=== PATIENT | male | born 1995 | race Caucasian/White ===

== ENCOUNTER 2016-05-21 13:08 | Emergency (ER) | payer OTHER ==
[~2016-05-21] VITALS: Ht 180.3 cm; Wt 68.0 kg
[2016-05-21] MEDS ORDERED: NKM (13:19)
--- NOTE | 2016-05-21 14:08 | Emergency Room Report ---
History of Present Illness General Chief Complaint: General Complaint Source: Patient Present Illness HPI 20-year-old male presents to emergency Department complaining of intermittent episodes of His muscles twitching in the face and arms bilaterally. Patient states recent use of methamphetamine on Thursday and has had symptoms that in addition to high blood pressure. Patient also reports dark colored urine denies hematuria denies dysuria. Patient is worried that he may have had a stroke. Patient states his symptoms resolved spontaneously and then reappear when angry. Denies abdominal pain. Denies numbness tingling or loss of sensation or gross motor movements of the extremities, incontinence of bowel or bladder. Denies CP, Palpitations, LOC, AMS, dizziness, Changes in Vision, Sensation, paresthesias, or a sudden severe headache. Allergies: Coded Allergies: No Known Allergies (Unverified , 05/21/16) Patient History Past Medical History: see triage record Past Surgical History: none Pertinent Family History: none Immunizations: UTD Reviewed Nursing Documentation: PMH: Agreed, PSxH: Agreed Nursing Documentation-PMH Past Medical History: No History, Except For Review of Systems All Other Systems: negative except mentioned in HPI Physical Exam Vital Signs Date Time Temp Pulse Resp B/P Pulse Ox O2 Delivery O2 Flow Rate FiO2 05/21/16 13:13 97.2 70 16 117/69 97 Room Air Sp02 EP Interpretation: reviewed, normal General Appearance: no apparent distress, alert, GCS 15, non-toxic Head: normocephalic, atraumatic Eyes: bilateral eye PERRL, bilateral eye normal inspection ENT: hearing grossly normal, normal pharynx, no angioedema, normal voice Neck: full range of motion, supple/symm/no masses Respiratory: chest non-tender, lungs clear, normal breath sounds, speaking full sentences Cardiovascular #1: regular rate, rhythm, no edema Gastrointestinal: normal bowel sounds, non tender, soft, no guarding, no rebound Rectal: deferred Genitourinary: normal inspection, no CVA tenderness Musculoskeletal: back normal, gait/station normal, normal range of motion, non- tender, no calf tenderness Neurologic: alert, oriented x3, responsive, motor strength/tone normal, sensory intact, speech normal, other - negative tinnels sign Psychiatric: memory normal, mood/affect normal, no suicidal/homicidal ideation , anxious Skin: normal color, no rash, warm/dry, well hydrated Lymphatic: no adenopathy Medical Decision Making PA Attestation Dr. astorga is my supervising Physician whom patient management has been discussed with. Diagnostic Impression: Primary Impression: Methamphetamine use Additional Impression: Elevated CK ER Course 20-year-old male presents to emergency Department complaining of intermittent episodes of. His mean and twitching in the face and arms bilaterally. Patient states recent use of methamphetamine on Thursday and has had symptoms that in addition to high blood pressure. Patient also reports dark colored urine denies hematuria denies dysuria. Patient is worried that he may have had a stroke. Patient states his symptoms resolved spontaneously and then reappear when angry. Ddx considered but are not limited to electrolyte imbalance, rhabdo, methamphetamine side effects, dehydration, TIA Vital signs: are WNL, pt. is afebrile H&PE are most consistent with Methamphetamine use side effects will r/o electrolyte imbalance or rhabdomyolysis ORDERS: -BMP: no evidence of electrolyte imbalance, normal renal function - Total CK: mildly elevated at 208. ED INTERVENTIONS: None required at this time. - Pt given list of substance abuse and addiction resources. DISCHARGE: At this time pt. is stable for d/c to home. Will provide printed patient care instructions, and any necessary prescriptions. Care plan and follow up instructions have been discussed with the patient prior to discharge. Labs Test 05/21/16 13:47 Urine Color Pale yellow Urine Appearance Slightly cloudy Urine pH 8 (4.5-8.0) Urine Specific [place] 1.015 (1.005-1.035) Urine Protein Negative (NEGATIVE) Urine Glucose (UA) Negative (NEGATIVE) Urine Ketones Negative (NEGATIVE) Urine Occult Blood Negative (NEGATIVE) Urine Nitrite Negative (NEGATIVE) Urine Bilirubin Negative (NEGATIVE) Urine Urobilinogen Normal MG/DL (0.0-1.0) Urine Leukocyte Esterase 1+ (NEGATIVE) Urine RBC 0-2 /HPF (0 - 0) Urine WBC 2-4 /HPF (0 - 0) Urine Squamous Epithelial Cells Occasional /LPF Urine Amorphous Sediment Moderate /LPF (NONE) Urine Bacteria Few /HPF (NONE) Sodium Level 139 mEQ/L (135-145) Potassium Level 4.1 mEQ/L (3.4-4.9) Chloride Level 98 mEQ/L (98-107) Carbon Dioxide Level 27 mEQ/L (20-30) Anion Gap 14 (5-15) Blood Urea Nitrogen 21 mg/dL (7-23) Creatinine 1.0 mg/dL (0.7-1.2) Estimat Glomerular Filtration Rate > 60 mL/min (>60) Glucose Level 90 mg/dL (74-106) Calcium Level 9.9 mg/dL (8.6-10.2) Total Creatine Kinase 208 U/L (38-174) Last Vital Signs Date Time Temp Pulse Resp B/P Pulse Ox O2 Delivery O2 Flow Rate FiO2 05/21/16 13:13 97.2 70 16 117/69 97 Room Air Disposition: HOME, SELF-CARE Condition: Stable Referrals: [facility]ERR[facility] (PCP) Patient Instructions: Creatine Kinase Test, Substance Use Disorder Additional Instructions: Take any previously prescribed medications as directed. Follow up with PCP in 3-5 days Return sooner to ED if new symptoms occur, or current symptoms become worse. Recommend discontinuing the use of methamphetamine. * please review list of substance abuse resources - Please note that this Emergency Department Report was dictated using [employer]manager in home technology software, occasionally this can lead to erroneous entry secondary to interpretation by the dictation equipment. Liana Dockery May 21, 2016 14:08
[2016-05-21 14:14] LABS: APPEARANCE,URINE SLIGHTLY CLOUDY; KETONES,URINE NEGATIVE (NEGATIVE); LEUKOCYTE ESTERASE ,URINE 1+ (NEGATIVE); NITRITE,URINE NEGATIVE (NEGATIVE); PH,URINE 8 (4.5-8.0); PROTEIN,URINE NEGATIVE (NEGATIVE); UROBILINOGEN,URINE NORMAL MG/DL (0.0-1.0)
[2016-05-21 14:24] LABS: AMORPHOUS SEDIMENT,UR MODERATE /LPF; BACTERIA,URINE FEW /HPF; RBC,URINE 0-2 /HPF (0 - 0); SQUAMOUS EPITHELIAL CELL,UR OCCASIONAL /LPF (NONE/OCC)
[2016-05-21 14:28] LABS: ANION GAP 14 (5-15); CALCIUM 9.9 mg/dL (8.6-10.2); CARBON DIOXIDE 27 mEQ/L (20-30); CHLORIDE 98 mEQ/L (98-107); GLOMERULAR FILTRATION RATE > 60 mL/min (>60); HEMOLYSIS 12; POTASSIUM 4.1 mEQ/L (3.4-4.9); SODIUM 139 mEQ/L (135-145)
[2016-05-21 15:19] VITALS: BP 117/64
== END 2016-05-21 15:23 | disposition home or self-care (01) ==
LOC: EMR 13:30
DX: F15.90 Other stimulant use, unspecified, uncomplicated (principal); R79.89 Other specified abnormal findings of blood chemistry; R25.3 Fasciculation
CPT/HCPCS: 36415; 80048; 81003; 82550; 99282

== ENCOUNTER 2016-06-18 12:02 | Emergency (ER) | payer OTHER ==
[~2016-06-18] VITALS: Ht 180.3 cm; Wt 68.0 kg
[~2016-06-18 12:02] MED LIST: NKM
[2016-06-18 12:26] VITALS: BP 112/70
[2016-06-18] MEDS ORDERED: TdaP Vaccine 0.5ml Syr IM ONE (12:45)
[2016-06-18] MEDS ORDERED: Bacitracin Oint UD TOPIC ONE (12:45)
--- NOTE | 2016-06-18 12:53 | Emergency Room Report ---
History of Present Illness General Chief Complaint: General Complaint Source: Patient, Medical Record Present Illness HPI 20-year-old male presents emergency department complaining of pain, erythema and foreign body sensation to the base of the left second digit x3 days. Patient states that he sustained a laceration from broken car glass window and believes that there may be foreign body inside. Patient does not know when his last tetanus vaccination was. Patient denies bleeding at this time. Patient reports decreased sensation about the wound. Denies numbness tingling or loss of sensation or gross motor movements of the extremities, incontinence of bowel or bladder. Denies CP, Palpitations, LOC, AMS, dizziness, Changes in Vision, Sensation, paresthesias, or a sudden severe headache. Allergies: Coded Allergies: No Known Allergies (Unverified , 05/21/16) Patient History Past Medical History: see triage record Past Surgical History: none Pertinent Family History: none Reviewed Nursing Documentation: PMH: Agreed, PSxH: Agreed Nursing Documentation-PMH Past Medical History: No History, Except For Review of Systems All Other Systems: negative except mentioned in HPI Physical Exam Vital Signs Date Time Temp Pulse Resp B/P Pulse Ox O2 Delivery O2 Flow Rate FiO2 06/18/16 12:26 97.5 60 20 112/70 98 Room Air Sp02 EP Interpretation: reviewed, normal General Appearance: no apparent distress, alert, GCS 15, non-toxic Head: normocephalic, atraumatic Eyes: bilateral eye PERRL, bilateral eye normal inspection ENT: hearing grossly normal, normal pharynx, no angioedema, normal voice Neck: full range of motion, supple/symm/no masses Respiratory: lungs clear, normal breath sounds, speaking full sentences Cardiovascular #1: regular rate, rhythm, no edema Musculoskeletal: back normal, gait/station normal, normal range of motion, non- tender Neurologic: alert, oriented x3, responsive, motor strength/tone normal, sensory intact, speech normal Psychiatric: judgement/insight normal, memory normal, mood/affect normal, no suicidal/homicidal ideation Skin: normal color, no rash, warm/dry, well hydrated, laceration - healing laceration of the left hand between digits 2 and 3, healing by secondary intent , with notable soft tissue scarring, erythema, and mild crusting noted, ttp to soft tissue in that area. Lymphatic: no adenopathy Medical Decision Making PA Attestation Dr. Tyson is my supervising Physician whom patient management has been discussed with. Diagnostic Impression: Primary Impression: Foreign body of hand, left Qualified Codes: S60.552A - Superficial foreign body of left hand, initial encounter Additional Impression: Cellulitis Qualified Codes: L03.012 - Cellulitis of left finger ER Course 20-year-old male presents emergency department complaining of 4/10 in severity pain, erythema and foreign body sensation to the base of the left second digit x3 days. Patient states that he sustained a laceration from broken car glass window and believes that there may be foreign body inside. pain exacerbated with squeezing the skin about the laceration. Patient does not know when his last tetanus vaccination was. Patient denies bleeding at this time. Patient reports decreased sensation about the wound. Ddx considered but are not limited to laceration, tendon injury, cellulitis, amputation, FB Vital signs: are WNL, pt. is afebrile H&PE are most consistent with: palm laceration approx 1 cm in length - healing laceration of the left hand between digits 2 and 3, healing by secondary intent, with notable soft tissue scarring, erythema, and mild crusting noted, ttp to soft tissue in that area. suspicious for secondary infection- pt will be placed on abx. ORDERS: -- X-ray Left hand 3 views - negative for fx, Dislocation, evidence of soft tissue laceration, POSITIVE for fb near site of laceration- per preliminary read in ED by Dr. Tyson ED INTERVENTIONS: -Tetanus vaccine was administered as pt. vaccination status was unknown. -Bacitracin and sterile dressing is applied. -Pt is given referral for hand specialists to contact for FB removal, pt. was also provided a list of free or reduced cost health clinics for follow up if the referrals he was given are unable to accommodate him. - pt is provided a copy of his xrays. DISCHARGE: At this time pt. is stable for d/c to home. Will provide printed patient care instructions, and any necessary prescriptions. Care plan and follow up instructions have been discussed with the patient prior to discharge. Last Vital Signs Date Time Temp Pulse Resp B/P Pulse Ox O2 Delivery O2 Flow Rate FiO2 06/18/16 12:26 97.5 60 20 112/70 98 Room Air Disposition: HOME, SELF-CARE Condition: Stable Scripts Bacitracin/Polymyxin B Sulfate (BACITRACIN-POLYMYXIN OINTMENT) 28.35 Gm Oint...g. 1 APPLIC TP BID, #28.3 GM Prov: Liana Dockery 06/18/16 Cephalexin* (KEFLEX*) 500 Mg Capsule 500 MG ORAL EVERY 12 HOURS for 7 Days, #14 CAP 0 Refills Prov: Liana Dockery 06/18/16 Referrals: NOT CHOSEN [facility],REFERRING (PCP) Patient Instructions: Puncture Wound Additional Instructions: Take medications as directed. Follow up with PCP in 3-5 days, Will need Hand Specialist referral for removal of foreign body. Return sooner to ED if new symptoms occur, or current symptoms become worse. - Please note that this Emergency Department Report was dictated using [employer] fleet manager technology software, occasionally this can lead to erroneous entry secondary to interpretation by the dictation equipment. Liana Dockery Jun 18, 2016 12:53
[2016-06-18] MEDS ORDERED: CEPHALEXIN500 MG ORAL (13:28)
[2016-06-18] MEDS ORDERED: BACITRACIN-P28.35 GM TP (13:30)
[2016-06-18 13:46] VITALS: BP 128/78
--- NOTE | 2016-06-19 14:59 | Diagnostic Imaging Report ---
Indication: PAIN, trauma, suspected foreign body Technique: 3 views hand Comparison: none Findings: No acute fractures. No dislocations. No radiopaque foreign body. Joint spaces are preserved. 2 punctate radiopacities are seen in the volar surface of the hand anterior to the metacarpal phalangeal joints. These are not visualized on either the AP or the oblique view, could well be artifactual. Impression: 2 punctate densities project over the volar surface of the hand on the lateral view, could represent small foreign bodies but suspect artifactual. No acute bony trauma
== END 2016-06-18 13:46 | disposition home or self-care (01) ==
LOC: EMR 12:50
DX: S60.552A Superficial foreign body of left hand, initial encounter (principal); L03.012 Cellulitis of left finger; Z23 Encounter for immunization; W25.XXXA Contact with sharp glass, initial encounter; Y92.9 Unspecified place or not applicable; Y99.8 Other external cause status
CPT/HCPCS: 90471; 90715; 99284